=== PATIENT | male | born 1945 ===

== ENCOUNTER 2019-11-08 08:00 | Inpatient (IN) | payer OTHER ==
[~2019-11-08] VITALS: Ht 154.9 cm; Wt 93.0 kg
[2019-11-08] MEDS ORDERED: LANOXIN125 MCG PO (10:21)
[2019-11-08] MEDS ORDERED: QUINAPRIL HCL10 MG PO (10:21)
[2019-11-08] MEDS ORDERED: XARELTO20 MG PO (10:21)
[2019-11-08] MEDS ORDERED: SIMVASTATIN5 MG PO (10:21)
[2019-11-08] MEDS ORDERED: PEPCID AC20 MG PO (10:22)
[2019-11-08] MEDS ORDERED: TAMS0.4C PO (10:22)
[2019-11-08] MEDS ORDERED: TOPROL XL25 M1 PO (10:22)
[2019-11-08] MEDS ORDERED: GLIPIZIDE XL5 MG PO (10:22)
[2019-11-08] MEDS ORDERED: SYNTHROID112 MCG PO (10:23)
[2019-11-21] MEDS ORDERED: ZOCOR20 MG PO (08:23)
[2019-11-21] MEDS ORDERED: GLIMEPIRIDE4 MG PO (08:24)
[2019-11-21] MEDS ORDERED: PEPCID40 MG PO (08:25)
[2019-11-22] MEDS ORDERED: OXYC1TAB9 PO (07:57)
[2019-11-22] MEDS ORDERED: INTEGRA PLUS C1 EACH PO (07:57)
[2019-11-22] MEDS ORDERED: XARELTO10 MG PO (07:57)
== END 2019-11-22 17:51 | DRG 470 ==
LOC: ADM 08:00 → EDSTATUS 08:00 → SURH 11-13 08:00 → O/R 11-20 10:12 → SURH 11-20 18:35
PROVIDERS: ADMIT Orthopaedic Surgery Sports Medicine
PROC: 0SRC0J9 Replacement of Right Knee Joint with Synthetic Substitute, Cemented, Open Approach (ICD-10-PCS; principal; 2019-11-20 15:15)
PROC: 4A19X1Z Monitoring of Respiratory Capacity, External Approach (ICD-10-PCS; 2019-11-21)
DX: M17.11 Unilateral primary osteoarthritis, right knee (principal); E11.9 Type 2 diabetes mellitus without complications; E03.9 Hypothyroidism, unspecified; Z79.01 Long term (current) use of anticoagulants